=== PATIENT | male | born 1940 | race Caucasian/White ===

== ENCOUNTER 2016-10-02 19:23 | Inpatient (IN) | payer OTHER ==
[~2016-10-02] VITALS: Ht 172.7 cm; Wt 84.5 kg
[~2016-10-02 19:23] MED LIST: AMLOD-VALSA-HC1 EAC1 PO; AMLODIPINE BESYL5 MG PO; AVAPRO75 MG PO; Aspirin PO; B COMPLEX #11 EACH PO; B-12500 MC1 SL; BACTRIM,SEPT1 TABLE1 PO; CALCITRIOL0.25 MCG PO; CARDURA2 M1 PO; CENTRUM SILVER1 EAC3 PO; CLINDAMYCIN PHO60 GM TP; COMPAZINE10 MG PO; CYANOCOBALAM1000 MCG PO; DOXAZOSIN MESYLA2 MG PO; DOXAZOSIN MESYLA4 MG PO; FEROSUL325 MG PO; GLUCOSAMINE &1 EAC1 PO; HYDROCHLOROTH12.5 M3 PO; HYDROCODON-ACE1 EAC7 PO; IRON160 M1 PO; IRON325 M1 PO; LASIX20 MG PO; LEVAQUIN750 MG PO; LEVOFLOXACIN250 MG PO; LEVOTHYROXINE50 MCG PO; LITE COAT ASPI325 M1 PO; LOMOTIL TABLET1 EACH PO; LOPERAMIDE2 MG PO; LOPRESSOR25 MG PO; METHYLPREDNISOLO4 MG PO; METOPROLOL TART25 MG PO; METOPROLOL TART50 MG PO; NABI650T PO; NITROSTAT0.4 MG SL; PERCOCET 5/31 TABLET PO; PRILOSEC20 MG PO; PROCHLORPERAZIN10 MG PO; SIMVASTATIN20 MG PO; SODIUM BICARBO325 MG PO; SYNTHROID50 MCG PO; TEKTURNA HCT PO; TEKTURNA HCT1 TABLE3 PO; VITAMIN B-12250 MCG PO; VITAMIN B-6100 MG PO; VITAMIN D1000 UNIT PO; VITAMIN D31000 UNI2 PO; ZOCOR20 MG PO; ZOFRAN8 MG PO
[2016-10-02 19:49] LABS: HEMATOCRIT 30.5 % (38.0-50.0); MCH 31.2 PG (29.0-34.0); MCHC 33.8 G/DL (30.0-36.0); MCV 92.4 FL (86-99); MEAN PLAT.VOLUME 9.1 uM^3 (9.0-12.4); PLATELET COUNT 113 K/uL (156-360); RBC DIS.WIDTH-CV 12.7 % (11.8-14.6); RBC DIS.WIDTH-SD 40.9 % (39-53); WHITE BLOOD COUNT 5.1 K/uL (4.1-10.2)
[2016-10-02 19:57] LABS: CHLORIDE 108 mEq/L (99-109); POTASSIUM 3.9 mEq/L (3.7-5.4); SODIUM 141 mEq/L (136-147)
[2016-10-02 19:58] LABS: GLUCOSE 112 mg/dL (70-99)
[2016-10-02 20:00] LABS: ANION GAP 11 MEQ/L (2-14)
[2016-10-02 20:02] LABS: GFR ESTIMATE (CALCULATED) 29 mL/min/
[2016-10-02 20:03] LABS: UREA NITROGEN (BUN) 23 mg/dL (9-23)
[2016-10-02] MEDS ORDERED: IRON325 M1 PO (20:10)
[2016-10-02] MEDS ORDERED: DOXAZOSIN MESYLA2 MG PO (20:10)
[2016-10-02] MEDS ORDERED: AMLODIPINE BESY10 MG PO (20:12)
[2016-10-02 20:40] LABS: TROP-I INTERPRETATION NEGATIVE; TROPONIN-I 0.03 ng/mL (0.0-0.30)
[2016-10-02 23:12] LABS: INFLUENZA A VIRAL ANTIGEN NEGATIVE; INFLUENZA B VIRAL ANTIGEN NEGATIVE
[2016-10-03 01:12] VITALS: BP 153/70
[2016-10-03 01:49] VITALS: BP 153/70
[2016-10-03 03:57] VITALS: BP 121/64
[2016-10-03 05:15] LABS: EOSINOPHIL (%) 2.9 % (0-5); EOSINOPHIL COUNT 0.1 K/uL (0-0.3); HEMATOCRIT 27.1 % (38.0-50.0); IMMATURE GRANULOCYTE (%) 0.2 % (0.0-0.7); LYMPHOCYTE COUNT 0.4 K/uL (1.0-2.8); MCH 30.4 PG (29.0-34.0); MCHC 32.5 G/DL (30.0-36.0); MCV 93.8 FL (86-99); MEAN PLAT.VOLUME 9.5 uM^3 (9.0-12.4); MONOCYTE (%) 13.4 % (3-12); MONOCYTE COUNT 0.6 K/uL (0-0.8); NEUTROPHIL (%) 73.5 % (45-76); PLATELET COUNT 108 K/uL (156-360); RBC DIS.WIDTH-CV 13.1 % (11.8-14.6); RBC DIS.WIDTH-SD 44.7 % (39-53); RED BLOOD COUNT 2.89 M/uL (4.00-5.50); WHITE BLOOD COUNT 4.1 K/uL (4.1-10.2)
[2016-10-03 05:37] LABS: ANION GAP 10 MEQ/L (2-14); CHLORIDE 105 MEQ/L (99-109); GFR ESTIMATE (CALCULATED) 28 mL/min/; GLUCOSE 124 mg/dL (70-99); SAMPLE HEMOLYSIS CHECK 0; SAMPLE ICTERIC CHECK 0; SAMPLE LIPEMIA CHECK 0; SODIUM 139 MEQ/L (136-147); UREA NITROGEN (BUN) 26 mg/dL (9-23)
[2016-10-03 05:46] LABS: TROP-I INTERPRETATION NEGATIVE; TROPONIN-I 0.03 ng/mL (0.0-0.30)
[2016-10-03 07:16] VITALS: BP 140/64
[2016-10-03 09:03] LABS: C DIFF TOXIN NEGATIVE (NEGATIVE)
[2016-10-03 09:04] LABS: PROBE CHECK PASS; SPECIMEN PROCESSING CONTROL PASS
[2016-10-03 10:59] VITALS: BP 135/58
[2016-10-03 15:55] VITALS: BP 132/63
[2016-10-03 17:03] LABS: METH RESISTANT S AUREUS PCR NEGATIVE (NEGATIVE)
[2016-10-03 17:04] LABS: PROBE CHECK PASS; SPECIMEN PROCESSING CONTROL PASS
[2016-10-04 00:12] VITALS: BP 138/65
[2016-10-04 07:31] LABS: EOSINOPHIL (%) 8.7 % (0-5); EOSINOPHIL COUNT 0.4 K/uL (0-0.3); HEMATOCRIT 26.4 % (38.0-50.0); IMMATURE GRANULOCYTE (%) 0.6 % (0.0-0.7); LYMPHOCYTE COUNT 0.4 K/uL (1.0-2.8); MCH 31.3 PG (29.0-34.0); MCHC 33.3 G/DL (30.0-36.0); MEAN PLAT.VOLUME 10.3 uM^3 (9.0-12.4); MONOCYTE (%) 11.8 % (3-12); MONOCYTE COUNT 0.6 K/uL (0-0.8); NEUTROPHIL (%) 70.2 % (45-76); NEUTROPHIL COUNT 3.3 K/uL (1.8-6.4); PLATELET COUNT 119 K/uL (156-360); RBC DIS.WIDTH-CV 12.9 % (11.8-14.6); RED BLOOD COUNT 2.81 M/uL (4.00-5.50); WHITE BLOOD COUNT 4.7 K/uL (4.1-10.2)
[2016-10-04 08:11] VITALS: BP 129/63
[2016-10-04 08:14] LABS: ANION GAP 11 MEQ/L (2-14); CHLORIDE 106 MEQ/L (99-109); POTASSIUM 4.2 MEQ/L (3.7-5.4); SAMPLE HEMOLYSIS CHECK 0; SAMPLE ICTERIC CHECK 0; SAMPLE LIPEMIA CHECK 0; SODIUM 139 MEQ/L (136-147)
[2016-10-04 08:23] LABS: GFR ESTIMATE (CALCULATED) 23 mL/min/; GLUCOSE 120 mg/dL (70-99); UREA NITROGEN (BUN) 29 mg/dL (9-23)
[2016-10-04 16:09] VITALS: BP 140/63
[2016-10-04 23:52] VITALS: BP 148/65
[2016-10-05 06:10] LABS: ABSOLUTE RETICULOCYTE CT. 0.03 M/uL (0.02-0.08); EOSINOPHIL (%) 11.2 % (0-5); EOSINOPHIL COUNT 0.5 K/uL (0-0.3); HEMATOCRIT 26.3 % (38.0-50.0); IMM.RETIC FRACTION 14.1 % (3-19); IMMATURE GRANULOCYTE (%) 0.5 % (0.0-0.7); LYMPHOCYTE COUNT 0.5 K/uL (1.0-2.8); MCH 30.3 PG (29.0-34.0); MCHC 32.7 G/DL (30.0-36.0); MCV 92.6 FL (86-99); MEAN PLAT.VOLUME 9.3 uM^3 (9.0-12.4); MONOCYTE (%) 11.2 % (3-12); MONOCYTE COUNT 0.5 K/uL (0-0.8); NEUTROPHIL (%) 66.1 % (45-76); NEUTROPHIL COUNT 2.8 K/uL (1.8-6.4); PLATELET COUNT 124 K/uL (156-360); RBC DIS.WIDTH-CV 13.1 % (11.8-14.6); RBC DIS.WIDTH-SD 44.9 % (39-53); RED BLOOD COUNT 2.84 M/uL (4.00-5.50); RETICULOCYTE COUNT 0.9 % (0.5-1.8); WHITE BLOOD COUNT 4.3 K/uL (4.1-10.2)
[2016-10-05 06:38] LABS: ANION GAP 11 MEQ/L (2-14); CHLORIDE 106 MEQ/L (99-109); GFR ESTIMATE (CALCULATED) 27 mL/min/; GLUCOSE 97 mg/dL (70-99); IRON 22 MCG/DL (35-150); POTASSIUM 3.9 MEQ/L (3.7-5.4); SAMPLE HEMOLYSIS CHECK 0; SAMPLE ICTERIC CHECK 0; SAMPLE LIPEMIA CHECK 0; SODIUM 138 MEQ/L (136-147); UREA NITROGEN (BUN) 30 mg/dL (9-23)
[2016-10-05 08:47] VITALS: BP 142/64
[2016-10-05 12:00] VITALS: BP 139/63
[2016-10-05 16:00] VITALS: BP 141/64
[2016-10-05 23:31] VITALS: BP 118/59
[2016-10-06 05:57] LABS: EOSINOPHIL (%) 8.9 % (0-5); EOSINOPHIL COUNT 0.4 K/uL (0-0.3); HEMATOCRIT 22.7 % (38.0-50.0); IMMATURE GRANULOCYTE (%) 0.7 % (0.0-0.7); LYMPHOCYTE COUNT 0.4 K/uL (1.0-2.8); MCH 31.7 PG (29.0-34.0); MCHC 33.9 G/DL (30.0-36.0); MCV 93.4 FL (86-99); MEAN PLAT.VOLUME 9.8 uM^3 (9.0-12.4); MONOCYTE (%) 11.5 % (3-12); MONOCYTE COUNT 0.5 K/uL (0-0.8); NEUTROPHIL COUNT 2.9 K/uL (1.8-6.4); PLATELET COUNT 134 K/uL (156-360); RBC DIS.WIDTH-CV 13.1 % (11.8-14.6); RBC DIS.WIDTH-SD 44.7 % (39-53); RED BLOOD COUNT 2.43 M/uL (4.00-5.50); WHITE BLOOD COUNT 4.2 K/uL (4.1-10.2)
[2016-10-06 06:21] LABS: ANION GAP 7 MEQ/L (2-14); CHLORIDE 108 MEQ/L (99-109); GFR ESTIMATE (CALCULATED) 26 mL/min/; GLUCOSE 92 mg/dL (70-99); POTASSIUM 4.1 MEQ/L (3.7-5.4); SAMPLE HEMOLYSIS CHECK 0; SAMPLE ICTERIC CHECK 0; SAMPLE LIPEMIA CHECK 0; SODIUM 138 MEQ/L (136-147); UREA NITROGEN (BUN) 32 mg/dL (9-23)
[2016-10-06 08:09] VITALS: BP 145/67
[2016-10-06 17:25] VITALS: BP 155/68
[2016-10-06 23:08] VITALS: BP 129/61
[2016-10-07 08:19] VITALS: BP 145/63
[2016-10-07 08:35] LABS: EOSINOPHIL (%) 9.6 % (0-5); EOSINOPHIL COUNT 0.6 K/uL (0-0.3); HEMATOCRIT 27.3 % (38.0-50.0); IMMATURE GRANULOCYTE (%) 1.1 % (0.0-0.7); IMMATURE GRANULOCYTE COUNT 0.1 K/uL; LYMPHOCYTE COUNT 0.6 K/uL (1.0-2.8); MCH 30.8 PG (29.0-34.0); MCV 93.5 FL (86-99); MEAN PLAT.VOLUME 9.5 uM^3 (9.0-12.4); MONOCYTE (%) 8.3 % (3-12); MONOCYTE COUNT 0.5 K/uL (0-0.8); NEUTROPHIL (%) 72.3 % (45-76); NEUTROPHIL COUNT 4.7 K/uL (1.8-6.4); PLATELET COUNT 142 K/uL (156-360); RBC DIS.WIDTH-CV 13.2 % (11.8-14.6); RBC DIS.WIDTH-SD 44.7 % (39-53); RED BLOOD COUNT 2.92 M/uL (4.00-5.50); WHITE BLOOD COUNT 6.5 K/uL (4.1-10.2)
[2016-10-07 09:05] LABS: ANION GAP 13 MEQ/L (2-14); CHLORIDE 108 MEQ/L (99-109); GFR ESTIMATE (CALCULATED) 28 mL/min/; GLUCOSE 101 mg/dL (70-99); POTASSIUM 4.1 MEQ/L (3.7-5.4); SAMPLE HEMOLYSIS CHECK 0; SAMPLE ICTERIC CHECK 0; SAMPLE LIPEMIA CHECK 0; SODIUM 141 MEQ/L (136-147); UREA NITROGEN (BUN) 31 mg/dL (9-23)
[2016-10-07 16:08] VITALS: BP 174/72
[2016-10-07 17:38] VITALS: BP 135/78
[2016-10-08 00:33] VITALS: BP 165/74
[2016-10-08 03:25] VITALS: BP 178/75
[2016-10-08 05:37] LABS: HEMATOCRIT 24.7 % (38.0-50.0); MCH 30.3 PG (29.0-34.0); MCHC 32.4 G/DL (30.0-36.0); MCV 93.6 FL (86-99); MEAN PLAT.VOLUME 9.3 uM^3 (9.0-12.4); PLATELET COUNT 155 K/uL (156-360); RBC DIS.WIDTH-CV 13.3 % (11.8-14.6); RBC DIS.WIDTH-SD 45.7 % (39-53); RED BLOOD COUNT 2.64 M/uL (4.00-5.50)
[2016-10-08 06:02] LABS: ANION GAP 9 MEQ/L (2-14); CHLORIDE 108 MEQ/L (99-109); GFR ESTIMATE (CALCULATED) 28 mL/min/; GLUCOSE 106 mg/dL (70-99); SAMPLE HEMOLYSIS CHECK 0; SAMPLE ICTERIC CHECK 0; SAMPLE LIPEMIA CHECK 0; SODIUM 139 MEQ/L (136-147); UREA NITROGEN (BUN) 31 mg/dL (9-23)
[2016-10-08 07:46] VITALS: BP 173/75
[2016-10-08 13:46] LABS: ADD MIUA? YES; BILIRUBIN NEGATIVE; BLOOD SMALL; COLOR YELLOW ((YELLOW)); GLUCOSE (STRIP) NEGATIVE; KETONES NEGATIVE; LEUKOCYTES NEGATIVE; NITRITE NEGATIVE; PROTEIN (STRIP) 30; SPECIFIC GRAVITY 1.013 (1.000-1.030); UROBILINOGEN 0.2 MG/DL (0.2-1.0)
[2016-10-08 14:07] LABS: BACTERIA NONE SEEN /HPF; EPITHELIAL CELLS NONE SEEN /HPF; MUCUS TRACE /LPF; RED BLOOD CELLS 0-5 /HPF (0-5); UCUL ADDED? NO; WHITE BLOOD CELLS 0-5 /HPF (0-5)
[2016-10-08 16:12] VITALS: BP 155/72
[2016-10-08 17:04] LABS: APPEARANCE HAZY/YELLOW
[2016-10-08 17:10] LABS: RED CELL AREA COUNTED 0.4; RED CELL COUNT 8400 /MM^3 (0-1); RED CELL DILUTION 12; WBC AREA COUNTED 0.4; WBC DILUTION 12; WHITE CELL COUNT 16200 /MM^3 (0-200.0); WHITE CELL RAW COUNT 54
[2016-10-08 17:25] LABS: MONO RAW COUNT 5; MONONUCLEAR WBC'S 5 %; POLY RAW COUNT 95; POLYNUCLEAR WBC'S 95 % (0-25); SYNOVIAL FLUID EOSINOPHILS 0 % (0-25)
[2016-10-08 23:16] VITALS: BP 155/72
[2016-10-09 08:00] VITALS: BP 146/71
[2016-10-09 08:33] LABS: EOSINOPHIL (%) 0.8 % (0-5); EOSINOPHIL COUNT 0.1 K/uL (0-0.3); HEMATOCRIT 26.5 % (38.0-50.0); IMMATURE GRANULOCYTE COUNT 0.1 K/uL; LYMPHOCYTE COUNT 0.3 K/uL (1.0-2.8); MCH 30.4 PG (29.0-34.0); MCHC 32.5 G/DL (30.0-36.0); MCV 93.6 FL (86-99); MEAN PLAT.VOLUME 9.4 uM^3 (9.0-12.4); MONOCYTE (%) 4.2 % (3-12); MONOCYTE COUNT 0.3 K/uL (0-0.8); NEUTROPHIL (%) 87.8 % (45-76); NEUTROPHIL COUNT 5.2 K/uL (1.8-6.4); PLATELET COUNT 191 K/uL (156-360); RBC DIS.WIDTH-CV 13.4 % (11.8-14.6); RBC DIS.WIDTH-SD 45.5 % (39-53); RED BLOOD COUNT 2.83 M/uL (4.00-5.50)
[2016-10-09 09:01] LABS: ANION GAP 11 MEQ/L (2-14); CHLORIDE 110 MEQ/L (99-109); POTASSIUM 4.4 MEQ/L (3.7-5.4); SAMPLE HEMOLYSIS CHECK 0; SAMPLE ICTERIC CHECK 0; SAMPLE LIPEMIA CHECK 0; SODIUM 142 MEQ/L (136-147)
[2016-10-09 09:06] LABS: GFR ESTIMATE (CALCULATED) 35 mL/min/; GLUCOSE 131 mg/dL (70-99); UREA NITROGEN (BUN) 34 mg/dL (9-23)
[2016-10-09 11:55] LABS: POINT-OF-CARE METER ID UU14149397
[2016-10-09 14:07] LABS: LYME DISEASE SEROLOGY SCREEN NEGATIVE (NEGATIVE)
[2016-10-09 16:00] VITALS: BP 153/70
[2016-10-09 23:46] VITALS: BP 173/79
[2016-10-10 06:00] LABS: HEMATOCRIT 26.7 % (38.0-50.0); INSTRUMENT ABS NEUTROPHIL CT 6.4 K/uL; MCH 30.7 PG (29.0-34.0); MCHC 32.6 G/DL (30.0-36.0); MCV 94.3 FL (86-99); MEAN PLAT.VOLUME 9.3 uM^3 (9.0-12.4); PLATELET COUNT 240 K/uL (156-360); RBC DIS.WIDTH-SD 44.7 % (39-53); RED BLOOD COUNT 2.83 M/uL (4.00-5.50); WHITE BLOOD COUNT 7.6 K/uL (4.1-10.2)
[2016-10-10 06:28] LABS: ABS NEUTROPHIL COUNT 6.9; ATYPICAL LYMPHOCYTE 0.9 %; BASOPHILS 0.9 %; EOSINOPHIL ABS CT 0; LYMPHOCYTES 5.2 % (15.0-45.0); METAMYELOCYTES 0.9 %; PLAT.SUFFICIENCY ADEQUATE; SEG.NEUTROPHILS 84.2 % (46.0-76.0); SMUDGE CELLS 0.9
[2016-10-10 06:46] LABS: ANION GAP 9 MEQ/L (2-14); CHLORIDE 110 MEQ/L (99-109); GFR ESTIMATE (CALCULATED) 35 mL/min/; GLUCOSE 182 mg/dL (70-99); POTASSIUM 4.1 MEQ/L (3.7-5.4); SAMPLE HEMOLYSIS CHECK 0; SAMPLE ICTERIC CHECK 0; SAMPLE LIPEMIA CHECK 0; SODIUM 140 MEQ/L (136-147); UREA NITROGEN (BUN) 39 mg/dL (9-23)
[2016-10-10 08:00] VITALS: BP 180/79
[2016-10-10 16:57] VITALS: BP 177/79
[2016-10-11] VITALS: BP 167/79
[2016-10-11 07:43] VITALS: BP 186/84
[2016-10-11] MEDS ORDERED: PREDNISONE10 MG PO (10:40)
[2016-10-11] MEDS ORDERED: TAMSULOSIN HCL0.4 MG PO (10:40)
[2016-10-11] MEDS ORDERED: COLCRYS0.6 MG PO (10:42)
== END 2016-10-11 13:02 | disposition home health service (06) | DRG 871 ==
LOC: EME 19:23 → EDOF 23:40 → 3EAST 23:40
PROVIDERS: Emergency Medicine; Hospitalist; Internal Medicine; Physician Assistant; Physician Assistant Medical; Physician Assistant Surgical
PROC: 0S9C3ZX Drainage of Right Knee Joint, Percutaneous Approach, Diagnostic (ICD-10-PCS; principal; 2016-10-09)
DX: A41.9 Sepsis, unspecified organism (principal); J18.9 Pneumonia, unspecified organism; N17.9 Acute kidney failure, unspecified; J90 Pleural effusion, not elsewhere classified; E87.2 Acidosis; C78.7 Secondary malignant neoplasm of liver and intrahepatic bile duct; C18.8 Malignant neoplasm of overlapping sites of colon; K94.19 Other complications of enterostomy; M10.00 Idiopathic gout, unspecified site; R07.81 Pleurodynia; N18.3 Chronic kidney disease, stage 3 (moderate); I25.10 Atherosclerotic heart disease of native coronary artery without angina pectoris; I25.2 Old myocardial infarction; Z95.5 Presence of coronary angioplasty implant and graft; K91.850 Pouchitis; K46.9 Unspecified abdominal hernia without obstruction or gangrene; J98.11 Atelectasis; R41.82 Altered mental status, unspecified; D64.9 Anemia, unspecified; D69.6 Thrombocytopenia, unspecified; E11.22 Type 2 diabetes mellitus with diabetic chronic kidney disease; I12.9 Hypertensive chronic kidney disease with stage 1 through stage 4 chronic kidney disease, or unspecified chronic kidney disease; E03.9 Hypothyroidism, unspecified; N13.9 Obstructive and reflux uropathy, unspecified; R33.8 Other retention of urine; D50.0 Iron deficiency anemia secondary to blood loss (chronic); N25.81 Secondary hyperparathyroidism of renal origin; Z90.49 Acquired absence of other specified parts of digestive tract; K52.89 Other specified noninfective gastroenteritis and colitis; E78.5 Hyperlipidemia, unspecified; N40.1 Benign prostatic hyperplasia with lower urinary tract symptoms; Z87.891 Personal history of nicotine dependence; K44.9 Diaphragmatic hernia without obstruction or gangrene; R09.02 Hypoxemia; Z92.21 Personal history of antineoplastic chemotherapy; M17.11 Unilateral primary osteoarthritis, right knee
CPT/HCPCS: 70450; 71010; 71020; 71250; 73564; 74176; 78582; 80048; 80069; 80202; 81003; 82607; 82746; 82945; 82948; 83540; 83605; 83880; 84466; 84484; 84550; 85025; 85027; 85045; 86618; 87040; 87070; 87075; 87086; 87205; 87493; 87502; 87641; 89051; 93005; 94760; 94799; 96360; 97530 GO; 97530 GP; 99202; 99281; 99285; A9540; A9567; G0103; J0692; J0696; J0744; J1644; J1756; J1815; J1956; J3370; J7030; J7050; J7512

== ENCOUNTER 2017-10-26 11:59 | Inpatient (IN) | payer OTHER ==
[~2017-10-26] VITALS: Ht 175.3 cm; Wt 81.5 kg
[~2017-10-26 11:59] MED LIST changes: +ALLOPURINOL100 MG PO; +AMLODIPINE BESY10 MG PO; +COLCRYS0.6 MG PO; +PREDNISONE10 MG PO; +TAMSULOSIN HCL0.4 MG PO
[2017-10-26 12:55] LABS: BASOPHIL (%) 0.3 % (0-1); EOSINOPHIL (%) 5.6 % (0-5); EOSINOPHIL COUNT 0.2 K/uL (0-0.3); HEMATOCRIT 26.8 % (38.0-50.0); HEMOGLOBIN 9.2 G/DL (12.5-16.6); IMMATURE GRANULOCYTE (%) 0.5 % (0.0-0.7); LYMPHOCYTE (%) 20.8 % (15-42); LYMPHOCYTE COUNT 0.8 K/uL (1.0-2.8); MCH 33.8 PG (29.0-34.0); MCHC 34.3 G/DL (30.0-36.0); MCV 98.5 FL (86-99); MONOCYTE (%) 13.5 % (3-12); MONOCYTE COUNT 0.5 K/uL (0-0.8); NEUTROPHIL (%) 59.3 % (45-76); NEUTROPHIL COUNT 2.3 K/uL (1.8-6.4); PLATELET COUNT 85 K/uL (156-360); RBC DIS.WIDTH-CV 14.3 % (11.8-14.6); RBC DIS.WIDTH-SD 49.1 % (39-53); RED BLOOD COUNT 2.72 M/uL (4.00-5.50); WHITE BLOOD COUNT 3.9 K/uL (4.1-10.2)
[2017-10-26 13:07] LABS: CHLORIDE 111 mEq/L (99-109); POTASSIUM 3.9 mEq/L (3.7-5.4); SODIUM 144 mEq/L (136-147)
[2017-10-26 13:09] LABS: GLUCOSE 100 mg/dL (70-99); TOTAL PROTEIN 5.1 g/dL (6.4-8.3)
[2017-10-26 13:11] LABS: TOTAL BILIRUBIN 0.8 mg/dL (0.0-1.0)
[2017-10-26 13:13] LABS: ALKALINE PHOSPHATASE 93 IU/L (3-129); CREATININE 1.8 mg/dL (0.6-1.3); GFR ESTIMATE (CALCULATED) 39 mL/min/ (58.99-99999)
[2017-10-26 13:14] LABS: UREA NITROGEN (BUN) 15 mg/dL (9-23)
[2017-10-26 13:15] LABS: AST (GOT) 21 IU/L (2-34)
[2017-10-26 13:16] LABS: ALT (GPT) 8 IU/L (3-49)
[2017-10-26 15:19] LABS: CREATINE KINASE 33 IU/L (1-294)
[2017-10-26 15:40] VITALS: BP 182/68
[2017-10-26 20:54] VITALS: BP 136/85
[2017-10-27] VITALS (8 sets, daily range): BP systolic 154–198; BP diastolic 70–89
[2017-10-27 06:09] LABS: HEMATOCRIT 26.4 % (38.0-50.0); HEMOGLOBIN 8.9 G/DL (12.5-16.6); MCHC 33.7 G/DL (30.0-36.0); MCV 97.8 FL (86-99); PLATELET COUNT 90 K/uL (156-360); RBC DIS.WIDTH-SD 49.2 % (39-53); WHITE BLOOD COUNT 3.3 K/uL (4.1-10.2)
[2017-10-27 06:34] LABS: CHLORIDE 110 MEQ/L (99-109); CREATININE 1.8 MG/DL (0.6-1.3); GFR ESTIMATE (CALCULATED) 39 mL/min/ (58.99-99999); GLUCOSE 99 mg/dL (70-99); POTASSIUM 3.8 MEQ/L (3.7-5.4); SODIUM 141 MEQ/L (136-147); UREA NITROGEN (BUN) 15 mg/dL (9-23)
[2017-10-27 15:02] LABS: APPEARANCE CLEAR ((CLEAR)); BILIRUBIN NEGATIVE; BLOOD SMALL; COLOR YELLOW ((YELLOW)); GLUCOSE (STRIP) NEGATIVE; KETONES NEGATIVE; LEUKOCYTES NEGATIVE; NITRITE NEGATIVE; PROTEIN (STRIP) 100; SPECIFIC GRAVITY 1.011 (1.000-1.030); UROBILINOGEN 0.2 MG/DL (0.2-1.0)
[2017-10-27 15:05] LABS: BACTERIA NONE SEEN /HPF; EPITHELIAL CELLS NONE SEEN /HPF; MUCUS TRACE /LPF; RED BLOOD CELLS 0-5 /HPF (0-5); UCUL ADDED? NO; WHITE BLOOD CELLS 0-5 /HPF (0-5)
[2017-10-28] VITALS: BP 141/62
[2017-10-28 04:31] VITALS: BP 153/69
[2017-10-28 06:08] LABS: BASOPHIL (%) 0.2 % (0-1); EOSINOPHIL (%) 1.2 % (0-5); EOSINOPHIL COUNT 0.1 K/uL (0-0.3); HEMATOCRIT 25.7 % (38.0-50.0); IMMATURE GRANULOCYTE (%) 0.4 % (0.0-0.7); LYMPHOCYTE (%) 12.6 % (15-42); LYMPHOCYTE COUNT 0.6 K/uL (1.0-2.8); MCH 34.5 PG (29.0-34.0); MCV 98.5 FL (86-99); MONOCYTE (%) 11.6 % (3-12); MONOCYTE COUNT 0.6 K/uL (0-0.8); NEUTROPHIL COUNT 3.6 K/uL (1.8-6.4); PLATELET COUNT 90 K/uL (156-360); RBC DIS.WIDTH-CV 14.1 % (11.8-14.6); RBC DIS.WIDTH-SD 49.9 % (39-53); RED BLOOD COUNT 2.61 M/uL (4.00-5.50); WHITE BLOOD COUNT 4.9 K/uL (4.1-10.2)
[2017-10-28 06:46] LABS: ALBUMIN 2.5 G/DL (3.2-4.8); ALKALINE PHOSPHATASE 70 IU/L (3-129); ALT (GPT) 8 IU/L (3-49); AST (GOT) 22 IU/L (2-34); CHLORIDE 105 MEQ/L (99-109); GFR ESTIMATE (CALCULATED) 35 mL/min/ (58.99-99999); GLUCOSE 100 mg/dL (70-99); POTASSIUM 4.2 MEQ/L (3.7-5.4); SODIUM 137 MEQ/L (136-147); TOTAL BILIRUBIN 1.3 MG/DL (0.0-1.0); TOTAL PROTEIN 4.4 G/DL (6.4-8.3); UREA NITROGEN (BUN) 19 mg/dL (9-23)
[2017-10-28 08:17] VITALS: BP 132/74
[2017-10-28 11:32] VITALS: BP 169/76
[2017-10-28 13:18] LABS: URIC ACID 8.1 mg/dL (3.1-9.2)
[2017-10-28 16:57] VITALS: BP 165/72
[2017-10-28 22:56] VITALS: BP 154/88
[2017-10-29] VITALS (7 sets, daily range): BP systolic 131–182; BP diastolic 60–82
[2017-10-29 06:37] LABS: BASOPHIL (%) 0.2 % (0-1); EOSINOPHIL (%) 2.4 % (0-5); EOSINOPHIL COUNT 0.1 K/uL (0-0.3); HEMATOCRIT 23.9 % (38.0-50.0); HEMOGLOBIN 8.1 G/DL (12.5-16.6); IMMATURE GRANULOCYTE (%) 0.5 % (0.0-0.7); LYMPHOCYTE (%) 10.9 % (15-42); LYMPHOCYTE COUNT 0.6 K/uL (1.0-2.8); MCH 33.5 PG (29.0-34.0); MCHC 33.9 G/DL (30.0-36.0); MCV 98.8 FL (86-99); MONOCYTE (%) 8.9 % (3-12); MONOCYTE COUNT 0.5 K/uL (0-0.8); NEUTROPHIL (%) 77.1 % (45-76); NEUTROPHIL COUNT 4.2 K/uL (1.8-6.4); PLATELET COUNT 78 K/uL (156-360); RBC DIS.WIDTH-CV 13.8 % (11.8-14.6); RBC DIS.WIDTH-SD 49.2 % (39-53); RED BLOOD COUNT 2.42 M/uL (4.00-5.50); WHITE BLOOD COUNT 5.5 K/uL (4.1-10.2)
[2017-10-29 07:01] LABS: CHLORIDE 104 MEQ/L (99-109); CREATININE 2.2 MG/DL (0.6-1.3); GFR ESTIMATE (CALCULATED) 31 mL/min/ (58.99-99999); GLUCOSE 119 mg/dL (70-99); SODIUM 134 MEQ/L (136-147); UREA NITROGEN (BUN) 25 mg/dL (9-23)
[2017-10-29 10:42] LABS: LACTATE DEHYDROGENASE 148 IU/L (20-246)
[2017-10-29 10:44] LABS: TOTAL BILIRUBIN 0.9 MG/DL (0.0-1.0)
[2017-10-29 12:07] LABS: APPEARANCE CLOUDY ((CLEAR)); BILIRUBIN NEGATIVE; BLOOD MODERATE; COLOR AMBER ((YELLOW)); GLUCOSE (STRIP) NEGATIVE; KETONES NEGATIVE; LEUKOCYTES TRACE; NITRITE NEGATIVE; PROTEIN (STRIP) >=500; SPECIFIC GRAVITY 1.013 (1.000-1.030); UROBILINOGEN 0.2 MG/DL (0.2-1.0)
[2017-10-29 12:54] LABS: RED BLOOD CELLS NONE SEEN /HPF (0-5); WHITE BLOOD CELLS 0-5 /HPF (0-5)
[2017-10-29 12:55] LABS: BACTERIA 3+ /HPF; EPITHELIAL CELLS RARE /HPF; MUCUS NONE SEEN /LPF
[2017-10-30] VITALS (7 sets, daily range): BP systolic 150–172; BP diastolic 62–81
[2017-10-30 06:34] LABS: BASOPHIL (%) 0.2 % (0-1); EOSINOPHIL (%) 0 % (0-5); HEMATOCRIT 25.5 % (38.0-50.0); HEMOGLOBIN 8.9 G/DL (12.5-16.6); IMMATURE GRANULOCYTE (%) 0.5 % (0.0-0.7); LYMPHOCYTE (%) 5.1 % (15-42); LYMPHOCYTE COUNT 0.3 K/uL (1.0-2.8); MCH 33.2 PG (29.0-34.0); MCHC 34.9 G/DL (30.0-36.0); MCV 95.1 FL (86-99); MONOCYTE (%) 3.1 % (3-12); MONOCYTE COUNT 0.2 K/uL (0-0.8); NEUTROPHIL (%) 91.1 % (45-76); RBC DIS.WIDTH-CV 13.4 % (11.8-14.6); RBC DIS.WIDTH-SD 47.1 % (39-53); RED BLOOD COUNT 2.68 M/uL (4.00-5.50); WHITE BLOOD COUNT 5.5 K/uL (4.1-10.2)
[2017-10-30 06:35] LABS: PLATELET COUNT 114 K/uL (156-360)
[2017-10-30 06:49] LABS: APPEARANCE CLOUDY ((CLEAR)); BILIRUBIN NEGATIVE; BLOOD SMALL; COLOR YELLOW ((YELLOW)); GLUCOSE (STRIP) NEGATIVE; KETONES NEGATIVE; LEUKOCYTES NEGATIVE; NITRITE NEGATIVE; PROTEIN (STRIP) 100; UROBILINOGEN 0.2 MG/DL (0.2-1.0)
[2017-10-30 06:54] LABS: BACTERIA 2+ /HPF; EPITHELIAL CELLS RARE /HPF; MUCUS TRACE /LPF; RED BLOOD CELLS 0-5 /HPF (0-5); UCUL ADDED? YES; WHITE BLOOD CELLS 0-5 /HPF (0-5)
[2017-10-30 06:56] LABS: ALBUMIN 2.5 G/DL (3.2-4.8); CHLORIDE 102 MEQ/L (99-109); CREATININE 2.1 MG/DL (0.6-1.3); GFR ESTIMATE (CALCULATED) 33 mL/min/ (58.99-99999); SODIUM 133 MEQ/L (136-147); TOTAL PROTEIN 4.7 G/DL (6.4-8.3); UREA NITROGEN (BUN) 29 mg/dL (9-23)
[2017-10-30 06:57] LABS: ALKALINE PHOSPHATASE 128 IU/L (3-129); ALT (GPT) 18 IU/L (3-49); AST (GOT) 34 IU/L (2-34); GLUCOSE 184 mg/dL (70-99); TOTAL BILIRUBIN 0.6 MG/DL (0.0-1.0)
[2017-10-31 03:31] VITALS: BP 177/81
[2017-10-31 07:20] VITALS: BP 170/108
[2017-10-31 10:55] VITALS: BP 170/78
[2017-10-31 14:50] VITALS: BP 171/92
[2017-10-31 19:13] VITALS: BP 168/74
[2017-10-31 22:54] VITALS: BP 170/78
[2017-11-01 04:33] VITALS: BP 166/74
[2017-11-01 06:52] VITALS: BP 178/83
[2017-11-01 15:07] VITALS: BP 147/67
[2017-11-01 23:20] VITALS: BP 175/80
[2017-11-02 00:29] VITALS: BP 177/75
[2017-11-02 07:19] VITALS: BP 163/76
[2017-11-02 07:20] LABS: CHLORIDE 109 MEQ/L (99-109); POTASSIUM 3.5 MEQ/L (3.7-5.4); UREA NITROGEN (BUN) 30 mg/dL (9-23)
[2017-11-02 07:22] LABS: HEMATOCRIT 26.2 % (38.0-50.0); HEMOGLOBIN 8.6 G/DL (12.5-16.6); MCH 32.8 PG (29.0-34.0); MCHC 32.8 G/DL (30.0-36.0); PLATELET COUNT 150 K/uL (156-360); RBC DIS.WIDTH-CV 14.4 % (11.8-14.6); RBC DIS.WIDTH-SD 52.6 % (39-53); RED BLOOD COUNT 2.62 M/uL (4.00-5.50); WHITE BLOOD COUNT 4.7 K/uL (4.1-10.2)
[2017-11-02 07:27] LABS: CREATININE 1.6 MG/DL (0.6-1.3); GFR ESTIMATE (CALCULATED) 45 mL/min/ (58.99-99999); GLUCOSE 99 mg/dL (70-99); SODIUM 142 MEQ/L (136-147)
[2017-11-02] MEDS ORDERED: GABAPENTIN100 MG PO (12:05)
[2017-11-02] MEDS ORDERED: LOPRESSOR50 MG PO (12:05)
[2017-11-02] MEDS ORDERED: COLACE100 MG PO (12:06)
[2017-11-02] MEDS ORDERED: MIRALAX17 GM PO (12:07)
== END 2017-11-02 14:00 | disposition home health service (06) | DRG 948 ==
LOC: EME 11:59 → ENRESERV 13:56 → EDOF 13:56 → 5EAST 13:56 → ENRESERV 13:59 → 5EAST 15:39 → ENRESERV 11-01 17:18 → 5EAST 11-01 18:22
PROVIDERS: Emergency Medicine; Hospitalist; Internal Medicine
DX: R52 Pain, unspecified (principal); F19.921 Other psychoactive substance use, unspecified with intoxication with delirium; D61.818 Other pancytopenia; E86.0 Dehydration; C78.7 Secondary malignant neoplasm of liver and intrahepatic bile duct; I12.9 Hypertensive chronic kidney disease with stage 1 through stage 4 chronic kidney disease, or unspecified chronic kidney disease; E03.9 Hypothyroidism, unspecified; T38.0X5A Adverse effect of glucocorticoids and synthetic analogues, initial encounter; I25.10 Atherosclerotic heart disease of native coronary artery without angina pectoris; C18.9 Malignant neoplasm of colon, unspecified; E78.5 Hyperlipidemia, unspecified; M10.9 Gout, unspecified; N18.3 Chronic kidney disease, stage 3 (moderate); J45.909 Unspecified asthma, uncomplicated; K21.9 Gastro-esophageal reflux disease without esophagitis; N40.0 Benign prostatic hyperplasia without lower urinary tract symptoms; I25.2 Old myocardial infarction; Z98.61 Coronary angioplasty status; Z87.891 Personal history of nicotine dependence; Z87.442 Personal history of urinary calculi; Z93.3 Colostomy status; Z85.048 Personal history of other malignant neoplasm of rectum, rectosigmoid junction, and anus; Z79.02 Long term (current) use of antithrombotics/antiplatelets
CPT/HCPCS: 71045; 73522; 80048; 80053; 81003; 82247; 82550; 82550 91; 83615; 83735; 84550; 85025; 85027; 87040; 87086; 93005; 93970; 97530 GO; 97530 GP; 99281; 99285; G8978 GP CM; G8979 CJ; G8987 GO CL; G8988 GO CJ; J0696; J1170; J1200; J1644; J2920; J2930; J3475; J7030

== ENCOUNTER 2018-01-12 16:43 | Observation (INO) | payer OTHER ==
[~2018-01-12] VITALS: Ht 175.3 cm; Wt 81.1 kg
[~2018-01-12 16:43] MED LIST changes: +COLACE100 MG PO; +GABAPENTIN100 MG PO; +LOPRESSOR50 MG PO; +MIRALAX17 GM PO; +ROSUVASTATIN CA10 MG PO
[2018-01-12 17:47] LABS: HEMATOCRIT 27.4 % (38.0-50.0); HEMOGLOBIN 9.4 G/DL (12.5-16.6); MCH 34.2 PG (29.0-34.0); MCHC 34.3 G/DL (30.0-36.0); MCV 99.6 FL (86-99); PLATELET COUNT 104 K/uL (156-360); RBC DIS.WIDTH-CV 14.6 % (11.8-14.6); RBC DIS.WIDTH-SD 52.6 % (39-53); RED BLOOD COUNT 2.75 M/uL (4.00-5.50); WHITE BLOOD COUNT 4.1 K/uL (4.1-10.2)
[2018-01-12 17:53] LABS: CHLORIDE 116 mEq/L (99-109); POTASSIUM 4.5 mEq/L (3.7-5.4); SODIUM 142 mEq/L (136-147)
[2018-01-12 17:55] LABS: GLUCOSE 118 mg/dL (70-99)
[2018-01-12 17:59] LABS: CREATININE 2.2 mg/dL (0.6-1.3); GFR ESTIMATE (CALCULATED) 31 mL/min/ (58.99-99999)
[2018-01-12 18:00] LABS: UREA NITROGEN (BUN) 17 mg/dL (9-23)
[2018-01-12 18:08] LABS: TROP-I INTERPRETATION NEGATIVE; TROPONIN-I 0.02 ng/mL (0.0-0.30)
[2018-01-12] MEDS ORDERED: FLOMAX0.4 MG PO (19:49)
[2018-01-12] MEDS ORDERED: CLINDAMYCIN PHO60 GM TP (19:52)
[2018-01-12 21:25] VITALS: BP 170/74
[2018-01-13 00:23] VITALS: BP 158/80
[2018-01-13 01:23] LABS: TROP-I INTERPRETATION NEGATIVE; TROPONIN-I 0.03 ng/mL (0.0-0.30)
[2018-01-13 04:15] VITALS: BP 170/74
[2018-01-13 05:28] LABS: TROP-I INTERPRETATION NEGATIVE; TROPONIN-I 0.01 ng/mL (0.0-0.30)
[2018-01-13 05:30] VITALS: BP 190/95
[2018-01-13 05:33] LABS: HDL CHOLESTEROL 35 MG/DL (Desirable>=40); LDL CHOLESTEROL 47 mg/dL (Desirable<100); NON-HDL CHOLESTEROL 72 mg/dL (Desirable<160); TOTAL CHOLESTEROL 107 mg/dL (Desirable<200); TRIGLYCERIDES 123 MG/DL (Normal: <150)
[2018-01-13 07:04] VITALS: BP 190/86
[2018-01-13 12:04] VITALS: BP 129/73
[2018-01-13 16:10] VITALS: BP 196/86
[2018-01-13] MEDS ORDERED: APRESOLINE10 MG PO (17:54)
== END 2018-01-13 16:43 | disposition home or self-care (01) ==
LOC: EME 16:43 → EDOF 19:18 → 4SOUTH 19:18 → EDOF 19:18 → ENRESERV 19:19 → 4SOUTH 20:57 → ENPENDDIS 01-13 15:12 → 4SOUTH 01-13 16:43
PROVIDERS: Emergency Medicine; Physician Assistant Medical
DX: R07.89 Other chest pain (principal); D63.1 Anemia in chronic kidney disease; C78.7 Secondary malignant neoplasm of liver and intrahepatic bile duct; Z92.21 Personal history of antineoplastic chemotherapy; I13.10 Hypertensive heart and chronic kidney disease without heart failure, with stage 1 through stage 4 chronic kidney disease, or unspecified chronic kidney disease; N18.3 Chronic kidney disease, stage 3 (moderate); I25.10 Atherosclerotic heart disease of native coronary artery without angina pectoris; Z95.5 Presence of coronary angioplasty implant and graft; E78.5 Hyperlipidemia, unspecified; I25.2 Old myocardial infarction; G62.9 Polyneuropathy, unspecified; T45.1X5A Adverse effect of antineoplastic and immunosuppressive drugs, initial encounter; Z86.19 Personal history of other infectious and parasitic diseases; M10.9 Gout, unspecified; E03.9 Hypothyroidism, unspecified; Z93.2 Ileostomy status; Z87.891 Personal history of nicotine dependence; N40.0 Benign prostatic hyperplasia without lower urinary tract symptoms; Z79.82 Long term (current) use of aspirin; Z85.038 Personal history of other malignant neoplasm of large intestine; Z88.8 Allergy status to other drugs, medicaments and biological substances; Z91.048 Other nonmedicinal substance allergy status; Z91.030 Bee allergy status; Z88.0 Allergy status to penicillin
CPT/HCPCS: 71045; 80048; 80061; 83880; 84484; 85027; 93005; 99281; 99285; G0378; J0360; J1644